=== PATIENT | female | born 1995 | race Caucasian/White ===

== ENCOUNTER 2016-08-26 18:20 | Emergency (ER) | payer OTHER ==
[~2016-08-26 18:20] MED LIST: Doxycycline 100 MG Tab PO ONE; traMADol 50 MG Tab PO ONE
[2016-08-26 18:31] VITALS: BP 92/63
[2016-08-26] MEDS ORDERED: Lidocaine 2% 20 ML MDV ONE (19:15)
[2016-08-26] MEDS ORDERED: Take Home: Doxycycline 100 MG Tab, 4 Tab Pack PO ONE (19:56)
[2016-08-26] MEDS ORDERED: Take Home: traMADol 50 MG, 4 Tab Pack PO ONE (20:01)
== END 2016-08-26 20:30 | disposition home or self-care (01) ==
LOC: CC.ED 18:20
DX: S62.654B Nondisplaced fracture of middle phalanx of right ring finger, initial encounter for open fracture (principal); W23.0XXA Caught, crushed, jammed, or pinched between moving objects, initial encounter; F32.9 Major depressive disorder, single episode, unspecified; F41.9 Anxiety disorder, unspecified; F17.210 Nicotine dependence, cigarettes, uncomplicated; Z88.0 Allergy status to penicillin; Z86.718 Personal history of other venous thrombosis and embolism
CPT/HCPCS: 73130; 81025; 99283; A9270

== ENCOUNTER 2016-12-23 13:55 | Emergency (ER) | payer BC, OTHER ==
[2016-12-23 14:02] VITALS: BP 119/88
[2016-12-23] MEDS ORDERED: Ketorolac 30 MG/ML SDV IM ONE (14:15)
[2016-12-23] MEDS ORDERED: Promethazine 25 MG/ML SDV IM PRN (14:23)
--- NOTE | 2016-12-23 14:23 | EDM.PDOC ---
ED HPI GENERAL MEDICAL PROBLEM - General Chief Complaint: Headache Stated Complaint: migraine Time Seen by Provider: 12/23/16 14:19 Source of Information: Reports: Patient History Limitations: Reports: No Limitations - History of Present Illness INITIAL COMMENTS - FREE TEXT/NARRATIVE: Patient presents ambulatory with headache for 4 days same as she has had for years and advanced to Migraine status this afternoon. She affirms photophobia and pain 8-10. She affirms weekly headaches in which her medication is inadvertently left at place of employment. She states has taken Excedrin x 3 a home with minimal resolution. has brought patient here and she has drive at home. When headaches are severe she indicates she takes Toradol for discomfort which seems to work well. She indicates she is on her menses and headaches are same as previously workup up. Onset: Gradual Onset Date: 12/20/16 Onset Time: 08:00 Duration: Day(s):, Getting Worse Location: Reports: Head Quality: Reports: Ache, Throbbing Severity: Moderate Improves with: Reports: None Worsens with: Reports: Other (light and noise), Movement Associated Symptoms: Reports: No Other Symptoms, Headaches. Denies: Confusion, Chest Pain, Cough, cough w sputum, Fever/Chills, Loss of Appetite, Malaise, Nausea/Vomiting, Rash, Weakness Treatments HAT LINER: Reports: Acetaminophen, Other (see below) (Excedrin) Bilateral Occipital Pain Score (Numeric/FACES): 8 - Related Data Allergies Allergy/AdvReac Type Severity Reaction Status Date / Time Penicillins Allergy Cannot Verified 08/26/16 18:22 Remember Home Meds: Home Meds . 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 (See Below) (On Menses IUD Mirena removed last week) Musculoskeletal History: Reports: None Neurological History: Reports: Migraines Psychiatric History: Reports: Anxiety, Depression - Past Surgical History HEENT Surgical History: Reports: Other (See Below) Other HEENT Surgeries/Procedures: wisdom teeth removal Social & Family History - Tobacco Use Smoking Status *Q: Current Every Day Smoker Years of Tobacco use: 3 Packs/Tins Daily: 1 - Caffeine Use Caffeine Use: Reports: None - Recreational Drug Use Recreational Drug Use: No - Living Situation & Occupation Living situation: Reports: Occupation: Employed ED ROS GENERAL - Review of Systems Review Of Systems: See Below Constitutional: Reports: Fatigue, Decreased Appetite HEENT: Reports: No Symptoms Respiratory: Reports: No Symptoms Cardiovascular: Reports: No Symptoms Endocrine: Reports: No Symptoms GI/Abdominal: Reports: No Symptoms : Reports: No Symptoms Musculoskeletal: Reports: No Symptoms Skin: Reports: No Symptoms Neurological: Reports: Headache. Denies: Confusion, Dizziness, Numbness, Paresthesia, Pre-Existing Deficit, Seizure, Syncope, Tingling, Tremors, Trouble Speaking, Difficulty Walking, Weakness, Change in Speech, Gait Disturbance Psychiatric: Reports: No Symptoms Hematologic/Lymphatic: Reports: No Symptoms Immunologic: Reports: No Symptoms - Physical Exam Exam: See Below Exam Limited By: No Limitations General Appearance: Alert, WD/WN, No Apparent Distress Eye Exam: Bilateral Eye: EOMI, Normal Fundi, Normal Inspection, PERRL Ears: Normal External Exam, Normal Canal, Hearing Grossly Normal, Normal TMs Nose: Normal Inspection, Normal Mucosa, No Blood Throat/Mouth: Normal Inspection, Normal Lips, Normal Teeth, Normal Gums, Normal Oropharynx, Normal Voice, No Airway Compromise Head Exam: Atraumatic, Normocephalic. No: Facial Tenderness Neck: Normal Inspection, Supple, Non-Tender, Full Range of Motion Respiratory/Chest: No Respiratory Distress, Lungs Clear, Normal Breath Sounds, No Accessory Muscle Use, Chest Non-Tender Cardiovascular: Normal Peripheral Pulses, Regular Rate, Rhythm, No JVD, No Murmur, No Rub GI/Abdominal: Normal Bowel Sounds, Soft (Female) Exam: Deferred Rectal (Female) Exam: Deferred Neuro Exam (Abbreviated): Alert, Oriented, CN II-XII Intact, Normal Cognition, Normal Gait, Normal Reflexes, No Motor/Sensory Deficits DTR: 2+: Bicep (R), Bicep (L), Tricep (R), Tricep (L), Patella (R), Patella (L) , Achilles (R), Achilles (L) Back Exam: Normal Inspection, Full Range of Motion Extremities: Normal Inspection, Normal Range of Motion, Non-Tender, No Pedal Edema, Normal Capillary Refill Psychiatric: Normal Affect, Normal Mood, Tearful Skin Exam: Warm, Dry, Intact, Normal Color, No Rash Course - Vital Signs Last Recorded V/S: Last Vital Signs Temp 36.7 C 12/23/16 14:00 Pulse 87 12/23/16 14:00 Resp 16 12/23/16 14:00 BP 119/88 12/23/16 14:00 Pulse Ox 100 12/23/16 14:00 - Orders/Labs/Meds Meds: Medications Discontinued Medications Generic Name Dose Route Start Last Admin Trade Name Freq PRN Reason Stop Dose Admin Ketorolac Tromethamine 30 mg 12/23/16 14:15 Toradol IM 12/23/16 14:16 ONETIME ONE Departure - Departure Time of Disposition: 14:28 Disposition: Home, Self-Care 01 Condition: Good Clinical Impression: Migraine - Discharge Information MLP Sign Off - Signature Requirements MLP Sign Off: No - Problem List & Annotations (1) Migraine SNOMED Code(s): 57135816 Code(s): G43.909 - MIGRAINE, UNSP, NOT INTRACTABLE, WITHOUT STATUS MIGRAINOSUS Status: Acute - Assessment/Plan Assessment:: Migraine Headache Plan: Toradol 30 mg IM Phenergan 25 mg IM Rest Fluids and hydration Stop smoking F/U prn
== END 2016-12-23 14:40 | disposition home or self-care (01) ==
LOC: CC.ED 13:55
DX: G43.909 Migraine, unspecified, not intractable, without status migrainosus (principal); F41.9 Anxiety disorder, unspecified; F32.9 Major depressive disorder, single episode, unspecified; F17.210 Nicotine dependence, cigarettes, uncomplicated; Z88.0 Allergy status to penicillin
CPT/HCPCS: 96372; 99283; J1885; J2550

== ENCOUNTER 2017-12-15 19:02 | Emergency (ER) | payer BC ==
--- NOTE | 2017-12-15 19:40 | EDM.PDOC ---
ED HPI GENERAL MEDICAL PROBLEM - General Chief Complaint: Cardiovascular Problem Stated Complaint: HIGH HEART RATE Time Seen by Provider: 12/15/17 19:10 Source of Information: Reports: Patient History Limitations: Reports: No Limitations - History of Present Illness INITIAL COMMENTS - FREE TEXT/NARRATIVE: patient presents to ER with a rapid heart rate. "Can't get my heart to slow down". Relates that she was sitting doing the schedule at work and just "felt it kick in". No history of arrhythmias but states this has happened once before and they were concerned she had a blood clot. Her lab test was positive for that but they could never find a source of that. She is 17 weeks . Has been concerns with the ultrasound findings and are waiting until her next repeat US to see if it resolved as was placenta concerns. Her uterine growth has been good and heart tones are always good. She does have a history of anxiety but did not feel stressed when this started. Has been dealing with a cough but feels related to allergies and has taken a claritin on occasion for that. No recent fevers. No chest pain or shortness of breath, just feels palpitations. No edema. Denies nausea or vomiting. Onset: Today, Sudden Duration: Minutes: Location: Reports: Chest Quality: Reports: Dull Severity: Mild Associated Symptoms: Reports: Cough. Denies: Confusion, Chest Pain, Fever/ Chills, Loss of Appetite, Nausea/Vomiting, Shortness of Breath, Syncope, Weakness Chest Pain Score (Numeric/FACES): 3 - Related Data Allergies Allergy/AdvReac Type Severity Reaction Status Date / Time Penicillins Allergy Cannot Verified 12/15/17 19:15 Remember Home Meds: Home Meds Magnesium 250 mg PO DAILY 12/15/17 [History] PNV95/Ferrous Fumarate/FA [ Tablet] 1 tab PO DAILY 12/15/17 [History] Sertraline [Zoloft] 25 mg PO DAILY 12/15/17 [History] Past Medical History Cardiovascular History: Reports: Blood Clots/VTE/DVT Respiratory History: Reports: Other (See Below) Gastrointestinal History: Reports: None Genitourinary History: Reports: None 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) Musculoskeletal History: Reports: None Neurological History: Reports: Migraines Psychiatric History: Reports: Anxiety, Depression Hematologic History: Reports: Other (See Below) Other Hematologic History: hx of an unknown blood disorder as a chil - Past Surgical History HEENT Surgical History: Reports: Other (See Below) Other HEENT Surgeries/Procedures: wisdom teeth removal Social & Family History - Tobacco Use Smoking Status *Q: Current Every Day Smoker Years of Tobacco use: 4 Packs/Tins Daily: 0.5 - Caffeine Use Caffeine Use: Reports: Soda Caffeine Use Comment: 2 sodas a day - Living Situation & Occupation Living situation: Reports: Occupation: Employed ED ROS GENERAL - Review of Systems Review Of Systems: See Below Constitutional: Denies: Fever, Chills, Malaise, Weakness, Decreased Appetite HEENT: Reports: Rhinitis. Denies: Ear Discharge, Ear Pain, Sinus Problem, Throat Pain Respiratory: Reports: Cough. Denies: Shortness of Breath, Wheezing Cardiovascular: Denies: Chest Pain, Edema, Lightheadedness Endocrine: Denies: Fatigue GI/Abdominal: Denies: Abdominal Pain, Nausea, Vomiting : Reports: No Symptoms Musculoskeletal: Reports: No Symptoms Skin: Reports: No Symptoms Neurological: Reports: No Symptoms ED EXAM, GENERAL - Physical Exam Exam: See Below Exam Limited By: No Limitations General Appearance: Alert, WD/WN, No Apparent Distress Ears: Normal External Exam, Normal TMs Nose: Normal Inspection, Normal Mucosa, No Blood Throat/Mouth: Normal Inspection, Normal Oropharynx Head: Normocephalic Neck: Normal Inspection, Supple, Non-Tender Respiratory/Chest: No Respiratory Distress, Lungs Clear, Normal Breath Sounds Cardiovascular: Regular Rate, Rhythm, Tachycardia (sinus rhythm) GI/Abdominal: Normal Bowel Sounds, Soft, Other (gravid, heart tones 150s) Extremities: Normal Inspection, Normal Capillary Refill Neurological: Alert, Oriented Skin Exam: Warm, Dry Course - Vital Signs Last Recorded V/S: Last Vital Signs Temp 96.7 F 12/15/17 19:03 Pulse 96 12/15/17 20:12 Resp 18 12/15/17 19:03 BP 108/63 12/15/17 20:12 Pulse Ox 100 12/15/17 19:03 - Orders/Labs/Meds Labs: Laboratory Tests 12/15/17 12/15/17 12/15/17 Range/Units 19:54 19:54 19:54 WBC 7.7 (5.0-10.0) 10^3/uL RBC 3.65 L (4.00-5.50) 10^6/uL Hgb 11.6 L (12.0-16.0) g/dL Hct 34.1 L (37.0-47.0) % MCV 93.4 (82.0-94.0) fL MCH 31.8 (27.0-32.0) pg MCHC 34.0 (33.0-38.0) g/dL RDW Coeff of Jaycob 15.1 H (11.0-15.0) % Plt Count 223 (150-400) 10^3/uL Neut % (Auto) 69.7 (35-85) % Lymph % (Auto) 20.5 (10-55) % Worth % (Auto) 7.0 (0-16) % Eos % (Auto) 2.5 (0-5) % Baso % (Auto) 0.3 (0-3) % Neut # (Auto) 5.34 (1.80-7.00) 10^3/uL Lymph # (Auto) 1.57 (1.00-4.80) 10^3/uL Worth # (Auto) 0.54 (0.00-0.80) 10^3/uL Eos # (Auto) 0.19 (0.00-0.45) 10^3/uL Baso # (Auto) 0.02 10^3/uL Sodium 139 (136-145) mEq/L Potassium 3.7 (3.5-5.0) mEq/L Chloride 104 (98-106) mEq/L Carbon Dioxide 26 (21-32) mmol/L BUN 8 (7-18) mg/dL Creatinine 0.5 L (0.6-1.0) mg/dL Est Cr Clr Drug Dosing 209.78 mL/min Estimated GFR (MDRD) > 60 (>=60) mL/min Glucose 89 (75-99) mg/dL Calcium 8.1 L (8.4-10.1) mg/dL Total Bilirubin 0.3 (0.0-1.0) mg/dL AST 22 (15-37) U/L ALT 25 (12-78) U/L Alkaline Phosphatase 62 (46-116) U/L C-Reactive Protein 0.6 (0.2-0.8) mg/dL Total Protein 6.5 (6.4-8.2) g/dL Albumin 2.9 L (3.4-5.0) g/dL Urine Color Yellow (YELLOW) Urine Appearance Clear (CLEAR) Urine pH 6.0 (4.5-8.0) Ur Specific Huson 1.020 (1.003-1.020) Urine Protein Negative (NEGATIVE) mg/dL Urine Glucose (UA) Negative (NEGATIVE) mg/dL Urine Ketones Negative (NEGATIVE) mg/dL Urine Occult Blood Negative (NEGATIVE) Urine Nitrite Negative (NEGATIVE) Urine Bilirubin Negative (NEGATIVE) Urine Urobilinogen 0.2 (0.2-1.0) EU/dL Ur Leukocyte Esterase Trace H (NEGATIVE) Urine RBC Not seen (0-5) /HPF Urine WBC 0-5 (0-5) /HPF Ur Squamous Epith Cells Moderate H (NOT SEEN) /HPF Urine Bacteria Few H (NOT SEEN) /HPF - Re-Assessments/Exams Free Text/Narrative Re-Assessment/Exam: 12/15/17 19:41 EKG shows NSR with rate at 98 Departure - Departure Time of Disposition: 20:19 Disposition: Home, Self-Care 01 Condition: Good Clinical Impression: Palpitations Referrals: Olya Howard DEVELOPMENT WRITER [Primary Care Provider] - Forms: ED Department Discharge Additional Instructions: 1. Push fluids 2. Rest 3. Follow up with Olya if ongoing concerns.
[2017-12-15 20:13] VITALS: BP 108/63
[2017-12-15 20:13] LABS: CHLORIDE,CL 104 mEq/L (98-106); SODIUM,NA 139 mEq/L (136-145)
== END 2017-12-15 19:28 | disposition home or self-care (01) ==
LOC: CC.ED 19:02
DX: R00.2 Palpitations (principal); F41.9 Anxiety disorder, unspecified; F32.9 Major depressive disorder, single episode, unspecified; F17.210 Nicotine dependence, cigarettes, uncomplicated; Z79.899 Other long term (current) drug therapy
CPT/HCPCS: 36415; 80053; 81001; 85025; 86140; 99285

== ENCOUNTER 2018-03-13 00:54 | Emergency (ER) | payer BC ==
[2018-03-13 01:08] VITALS: BP 141/82
--- NOTE | 2018-03-13 01:47 | EDM.PDOC ---
ED HPI GENERAL MEDICAL PROBLEM - General Chief Complaint: General Stated Complaint: vaginal cut Time Seen by Provider: 03/13/18 01:24 Source of Information: Reports: Patient History Limitations: Reports: No Limitations - History of Present Illness INITIAL COMMENTS - FREE TEXT/NARRATIVE: Joanne is a 22 yo female who presents to the ED with concerns of a cut on her vagina. She states she woke up around 12:45 and felt like she had peed her pants and noticed she was bleeding. She states she is 30 weeks and hasn 't had any complications thus far with current . Admits the bleeding isn't coming from inside the vagina but higher than that. She admits she isn't sure if she scratched it in her sleep or not. She states she tried to get it to stop bleeding but had difficulty seeing where it was coming from and used a pad which was soaked in blood. Patient denies any pain. She had told the nurse her pulse seems to always run in the low 100's. Immunizations addressed and up to date. 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) Musculoskeletal History: Reports: None Neurological History: Reports: Migraines Psychiatric History: Reports: Anxiety, Depression Hematologic History: Reports: Other (See Below) Other Hematologic History: hx of an unknown blood disorder as a child - Past Surgical History HEENT Surgical History: Reports: Other (See Below) Other HEENT Surgeries/Procedures: wisdom teeth removal Social & Family History - Family History Family Medical History: Noncontributory - Tobacco Use Smoking Status *Q: Current Every Day Smoker Years of Tobacco use: 4 Packs/Tins Daily: 0.7 - Caffeine Use Caffeine Use: Reports: Soda Caffeine Use Comment: 2 sodas a day - Recreational Drug Use Recreational Drug Use: No - Living Situation & Occupation Living situation: Reports: Occupation: Employed ED ROS GENERAL - Review of Systems Review Of Systems: ROS reveals no pertinent complaints other than HPI. ED EXAM, GENERAL - Physical Exam Exam: See Below Exam Limited By: No Limitations General Appearance: Alert, No Apparent Distress (Female) Exam: Other (No internal vaginal bleeding noted. Along the top left aspect of the labia minora, just below the glans of clitoris, are two very small abrasions. No active bleeding noted. Areas roughly 1-2 mm in size and again superficial. ). No: Vaginal Bleeding, Vaginal Tears Course - Vital Signs Last Recorded V/S: Last Vital Signs Temp 97 F 03/13/18 00:55 Pulse 104 H 03/13/18 00:55 Resp 18 03/13/18 00:55 BP 141/82 H 03/13/18 00:55 Pulse Ox 100 03/13/18 00:55 Departure - Departure Time of Disposition: 01:45 Disposition: Home, Self-Care 01 Clinical Impression: Vaginal abrasion Qualifiers: Encounter type: initial encounter Qualified Code(s): S30.814A - Abrasion of vagina and vulva, initial encounter - Discharge Information Referrals: PCP,Unknown [Primary Care Provider] - Additional Instructions: No active bleeding on examination 2 small abrasions to left inner labia on the outside of vaginal opening Monitor for any further bleeding or signs of infection Follow up with Olya Howard on for recheck in clinic If bleeding returns or any concerns at all, recommend reevaluation. - Problem List & Annotations (1) Vaginal abrasion SNOMED Code(s): 998457744 Code(s): S30.814A - ABRASION OF VAGINA AND VULVA, INITIAL ENCOUNTER Status : Acute Current Visit: Yes Qualifiers: Encounter type: initial encounter Qualified Code(s): S30.814A - Abrasion of vagina and vulva, initial encounter - Assessment/Plan Plan: Upon my arrival the bleeding had subsided. Nursing staff had cleansed the area and admitted initially upon examination it appeared to becoming from the inner labia on the left side. States the bleeding subsided on its own and afterwards was unable to find the site of bleeding. Examination then showed 2 very small scratches/abrasions to the left inner labia just below the glans of clitoris. Nurse again cleansed area and no further bleeding noted.
== END 2018-03-13 01:57 | disposition home or self-care (01) ==
LOC: CC.ED 00:54
DX: O9A.213 Injury, poisoning and certain other consequences of external causes complicating pregnancy, third trimester (principal); S30.814A Abrasion of vagina and vulva, initial encounter; F17.210 Nicotine dependence, cigarettes, uncomplicated; Z88.0 Allergy status to penicillin; Z3A.30 30 weeks gestation of pregnancy
CPT/HCPCS: 99282

== ENCOUNTER 2018-12-17 20:34 | Emergency (ER) | payer BC ==
[2018-12-17 20:43] VITALS: BP 113/70; PULSE 115
--- NOTE | 2018-12-17 21:23 | EDM.PDOC ---
ED HPI GENERAL MEDICAL PROBLEM - General Chief Complaint: ENT Problem Stated Complaint: ear pain Time Seen by Provider: 12/17/18 21:09 Source of Information: Reports: Patient History Limitations: Reports: No Limitations - History of Present Illness INITIAL COMMENTS - FREE TEXT/NARRATIVE: Jaonne is a 23 yo female who presents to the ED with complaints of a possible ear infection. Reports she is having stabbing right ear pain. Reported pain started about 2-3 days ago. Has not been seen or treated for symptoms. States pain was improved this morning but then worsened at work. Admits she thinks she is coming down with bronchitis as well. Has history of allergies which are acting up. Has nasal congestion and cough. Pt thinks she may also have a sinus infection. Admits she always has a faster heart rate as well. Right Ear Pain Score (Numeric/FACES): 6 - Related Data Allergies Allergy/AdvReac Type Severity Reaction Status Date / Time Penicillins Allergy Cannot Verified 12/17/18 20:35 Remember Home Meds: Home Meds Sertraline [Zoloft] 25 mg PO DAILY 12/15/17 [History] SUMAtriptan Succinate [Imitrex] 50 mg PO ASDIRECTED PRN 10/13/18 [History] Albuterol Sulfate [Albuterol Sulfate Hfa] 2 puff INH BID PRN 12/17/18 [History] Propranolol [Inderal] 10 mg PO DAILY 12/17/18 [History] predniSONE [Prednisone] 40 mg PO DAILY #10 tablet 12/17/18 [Rx] Past Medical History Cardiovascular History: Reports: Blood Clots/VTE/DVT Respiratory History: Reports: Asthma, Bronchitis, Recurrent Gastrointestinal History: Reports: None Genitourinary History: Reports: None 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: Musculoskeletal History: Reports: Back Pain, Chronic Neurological History: Reports: Migraines Psychiatric History: Reports: Anxiety, Depression Hematologic History: Reports: Anemia, Other (See Below) Other Hematologic History: hx of an unknown blood disorder as a child - Past Surgical History HEENT Surgical History: Reports: Oral Surgery, Other (See Below) Other HEENT Surgeries/Procedures: wisdom teeth removal Cardiovascular Surgical History: Reports: None Respiratory Surgical History: Reports: None Neurological Surgical History: Reports: None Musculoskeletal Surgical History: Reports: None Social & Family History - Family History Family Medical History: Noncontributory - Tobacco Use Smoking Status *Q: Current Every Day Smoker Years of Tobacco use: 5 Packs/Tins Daily: 0.7 - Caffeine Use Caffeine Use: Reports: Coffee, Soda Caffeine Use Comment: 2 sodas a day - Recreational Drug Use Recreational Drug Use: No - Living Situation & Occupation Living situation: Reports: Occupation: Employed ED ROS ENT - Review of Systems Review Of Systems: See Below Constitutional: Reports: Fever. Denies: Chills HEENT: Reports: Ear Pain, Rhinitis, Sinus Problem. Denies: Ear Discharge, Nosebleed Respiratory: Reports: Cough (feels as if she is getting bronchitis). Denies: Shortness of Breath Cardiovascular: Reports: No Symptoms ED EXAM, ENT - Physical Exam Exam: See Below Exam Limited By: No Limitations General Appearance: Alert, WD/WN, No Apparent Distress Eye Exam: Bilateral Eye: Normal Inspection Ears: Normal External Exam, TM Fluid. No: Auricular Erythema, Auricular Ecchymosis, Mastoid Swelling, Mastoid Tenderness, Canal Discharge, TM Bulging, TM Erythema, TM Blood, TM Perforation, TM Vesicles, TM Obscured by Cerumen Nose: No Blood, Clear Rhinorrhea Mouth/Throat: Normal Inspection. No: Gum Swelling, Lip Swelling, Lip Ulcers, Pharyngeal Erythema, Throat Pain, Tonsillar Exudates, Tonsillar Swelling Head: Atraumatic, Normocephalic, Sinus Tenderness. No: Facial Swelling, Facial Tenderness Neck: Normal Inspection, Supple. No: Lymphadenopathy (L), Lymphadenopathy (R) Respiratory/Chest: No Respiratory Distress, Lungs Clear, No Accessory Muscle Use Cardiovascular: No Murmur, Tachycardia Neurological: Alert, Oriented, Normal Cognition, No Motor/Sensory Deficits Psychiatric: Normal Affect, Normal Mood Skin: Warm, Dry, Intact, Normal Color, No Rash Course - Vital Signs Last Recorded V/S: Last Vital Signs Temp 99.5 F 12/17/18 20:39 Pulse 115 H 12/17/18 20:39 Resp 16 12/17/18 20:39 BP 113/70 12/17/18 20:39 Pulse Ox 100 12/17/18 20:39 Departure - Departure Time of Disposition: 21:18 Disposition: Home, Self-Care 01 Clinical Impression: Acute pain of right ear, Acute middle ear effusion - Discharge Information Prescriptions: predniSONE [Prednisone] 40 mg PO DAILY #10 tablet Instructions: Earache, Adult Forms: ED Department Discharge Additional Instructions: 1) Tylenol 1000mg with 400mg of ibuprofen every 8 hours as needed for pain/ fever. Recommend not taking over 3000mg of Tylenol in 24 hours. Take ibuprofen with food. 2) Prednisone 40mg a day for 5 days. Take with food. 3) Decongestant, over the counter, to be used as directed on bottle. 4) Flonase nasal spray, over the counter, use daily as directed on bottle 5) If symptoms worsen or any concerns at all, recommend reevaluation as discussed. - Problem List & Annotations (1) Acute middle ear effusion SNOMED Code(s): 50025605 Code(s): H65.199 - OTHER ACUTE NONSUPPURATIVE OTITIS MEDIA, UNSPECIFIED EAR Status: Acute Qualifiers: Laterality: right Qualified Code(s): H65.191 - Other acute nonsuppurative otitis media, right ear (2) Acute pain of right ear SNOMED Code(s): 45759383 Code(s): H92.01 - OTALGIA, RIGHT EAR Status: Acute - Assessment/Plan Plan: See additional instructions.
== END 2018-12-17 21:27 | disposition home or self-care (01) ==
LOC: CC.ED 20:34
DX: H74.8X1 Other specified disorders of right middle ear and mastoid (principal); F32.9 Major depressive disorder, single episode, unspecified; F41.9 Anxiety disorder, unspecified; J45.909 Unspecified asthma, uncomplicated; F17.210 Nicotine dependence, cigarettes, uncomplicated; Z88.0 Allergy status to penicillin; Z79.899 Other long term (current) drug therapy; Z79.51 Long term (current) use of inhaled steroids
CPT/HCPCS: 99282

== ENCOUNTER → 2020-03-04 | Day surgery (SDC) | payer BC, MEDICAID ==
[~2020-03-04] MED LIST changes: -Doxycycline 100 MG Tab PO ONE; +Lidocaine 1% 30 ML SDV ONE; -traMADol 50 MG Tab PO ONE
[2020-03-04 13:20] VITALS: BP 138/88; PULSE 98
== END ==
LOC: CC.SDS 10:49
PROVIDERS: ATTEND Family Medicine
DX: I83.812 Varicose veins of left lower extremity with pain (principal); I87.2 Venous insufficiency (chronic) (peripheral); F41.9 Anxiety disorder, unspecified; F32.9 Major depressive disorder, single episode, unspecified; Z88.0 Allergy status to penicillin; Z79.899 Other long term (current) drug therapy
CPT/HCPCS: A4216

== ENCOUNTER → 2020-03-11 | Day surgery (SDC) | payer BC, MEDICAID ==
[2020-03-11 15:01] VITALS: BP 144/80; PULSE 101
== END ==
LOC: CC.SDS 10:57
PROVIDERS: ATTEND Family Medicine
DX: I83.811 Varicose veins of right lower extremity with pain (principal); I87.2 Venous insufficiency (chronic) (peripheral); F41.9 Anxiety disorder, unspecified; F32.9 Major depressive disorder, single episode, unspecified; G43.909 Migraine, unspecified, not intractable, without status migrainosus; Z79.899 Other long term (current) drug therapy
CPT/HCPCS: A4216

== ENCOUNTER 2021-04-17 03:27 | Emergency (ER) | payer OTHER, BC ==
[2021-04-17 03:44] VITALS: BP 113/62; PULSE 72
[2021-04-17] MEDS ORDERED: Ketorolac 30 MG/ML SDV IM ONE (03:45)
== END 2021-04-17 04:25 | disposition home or self-care (01) ==
LOC: CC.ED 03:27
DX: S90.112A Contusion of left great toe without damage to nail, initial encounter (principal); Z88.0 Allergy status to penicillin; Z72.0 Tobacco use; W20.8XXA Other cause of strike by thrown, projected or falling object, initial encounter
CPT/HCPCS: 73660-TA; 96372; 99283-25; J1885

== ENCOUNTER 2022-02-19 10:17 | Emergency (ER) | payer MEDICAID ==
[2022-02-19 10:23] VITALS: BP 106/69; PULSE 83
== END 2022-02-19 11:50 | disposition home or self-care (01) ==
LOC: CC.ED 10:17
DX: S92.334A Nondisplaced fracture of third metatarsal bone, right foot, initial encounter for closed fracture (principal); S92.324A Nondisplaced fracture of second metatarsal bone, right foot, initial encounter for closed fracture; F17.210 Nicotine dependence, cigarettes, uncomplicated; Z88.0 Allergy status to penicillin; W19.XXXA Unspecified fall, initial encounter
CPT/HCPCS: 73630-RT; 99283